=== PATIENT | female | born 1975 | race Two or more races ===

== ENCOUNTER 2024-03-29 16:17 | Inpatient (IN) | payer MEDICAID, OTHER ==
[~2024-03-29] VITALS: Ht 154.9 cm; Wt 83.6 kg
[2024-03-29 17:13] LABS: Urine Bacteria None Seen /hpf (None Seen)
[2024-03-29 17:26] LABS: Urine Blood 3+ /uL (Negative); Urine Clarity Clear (Clear); Urine Color Colorless (Yellow); Urine Protein, UAD Negative (Negative); Urine Specific Gravity 1.007 (1.001-1.035); Urine Urobilinogen Normal (Negative); Urine WBC 1 /hpf (0 - 5)
[2024-03-29 17:51] LABS: Basophils # (auto) 0 10 ^3/uL (0-0.2); Basophils % (auto) 0.3 % (0.0-2.0); Eosinophils # (auto) 0 10 ^3/uL (0-0.8); Monocytes # (auto) 0.8 10 ^3/uL (0-1.3); White Blood Cell 12.5 10^3/uL (4.4-10.8)
[2024-03-29 17:54] LABS: Eosinophils % (auto) 0.3 % (0.0-7.0); Hematocrit 31.9 % (36.0-46.0); Hemoglobin 9.9 g/dL (12.2-16.2); Lymphocytes % (auto) 16.3 % (10.0-50.0); Mean Corpuscular Hemoglobin 19.8 pg (28.0-32.0); Mean Corpuscular Hgb Conc. 30.9 g/dL (32.0-36.0); Mean Corpuscular Volume 64.2 fL (80.0-100.0); Monocytes % (auto) 6.1 % (0.0-12.0); Neutrophils # (auto) 9.6 10 ^3/uL (1.6-8.6); Platelet Count (auto) 194 10^3/uL (140-450); Red Blood Cells 4.97 10^6/uL (4.0-5.20); Red Cell Distribution Width 19.9 % (11.8-14.3)
[2024-03-29 18:11] LABS: Alanine Aminotransferase 18 U/L (7-40); Albumin 4.4 g/dL (3.2-4.8); Alkaline Phosphatase 94 U/L (46-116); Anion Gap 8 (5-15); Aspartate Aminotransferase 22 U/L (13-40); BUN/Creatinine Ratio 14.9 (10.0-20.0); Blood Urea Nitrogen 10 mg/dL (9-23); Calcium 9.3 mg/dL (8.7-10.4); Carbon Dioxide 24 mmol/L (20-31); Chloride 107 mmol/L (98-107); Glucose 88 mg/dL (74-106); Sodium 139 mmol/L (136-145)
[2024-03-29 18:12] LABS: Bilirubin, Total 0.4 mg/dL (0.2-1.0); Total Protein 7.7 g/dL (5.7-8.2)
[2024-03-29] MEDS: ACETAMINOPHEN 325 MG TAB PO ONE (19:57)
[2024-03-29] MEDS: SODIUM CHLORIDE 0.9% 1,000 ML IV ONE (20:05)
[2024-03-29] MEDS: cefTRIAXone 1GM/50ML D5W 50 ML IV ONE (20:06)
[2024-03-29] MEDS: fentaNYL CITRATE 100 MCG/2 ML VL IV ONE (20:53)
[2024-03-29] MEDS ORDERED: MORPHINE SULFATE INJ 2 MG/ml SYRG IV PRN (23:45)
[2024-03-29] MEDS: SODIUM CHLORIDE 0.9% 1,000 ML IV SCH (23:45)
[2024-03-29] MEDS ORDERED: NITROGLYCERIN 0.4 MG SL TAB SL PRN (23:45)
[2024-03-29] MEDS ORDERED: ACETAMINOPHEN 325 MG TAB PO PRN (23:45)
[2024-03-29] MEDS ORDERED: ONDANSETRON HCL 4 MG/2 ML VIAL IV PRN (23:45)
[2024-03-30] VITALS (8 sets, daily range): BP systolic 125–148; BP diastolic 64–76; PULSE 66–82; RESP 16–20; TEMP 97.8–98.2; O2SAT 96–100
[2024-03-30] MEDS: DOXYCYCLINE 100MG/250ML 250 ML IV SCH (00:31)
[2024-03-30 00:32] LABS: Erythrocyte Sedimentation Rate 34 mm/hr (0-20)
[2024-03-30] MEDS: HYDROcodone-ACET 5/325MG TAB PO PRN (01:44)
[2024-03-30 03:05] LABS: Basophils # (auto) 0 10 ^3/uL (0-0.2); Hemoglobin 9.1 g/dL (12.2-16.2); Lymphocytes # (auto) 2.1 10 ^3/uL (0.4-5.4); Mean Corpuscular Hemoglobin 19.7 pg (28.0-32.0); Neutrophils # (auto) 8.4 10 ^3/uL (1.6-8.6)
[2024-03-30 03:07] LABS: Basophils % (auto) 0.3 % (0.0-2.0); Eosinophils # (auto) 0.1 10 ^3/uL (0-0.8); Eosinophils % (auto) 0.5 % (0.0-7.0); Hematocrit 29.4 % (36.0-46.0); Lymphocytes % (auto) 18.4 % (10.0-50.0); Mean Corpuscular Volume 63.8 fL (80.0-100.0); Monocytes % (auto) 8.6 % (0.0-12.0); Neutrophils % (auto) 72.2 % (37.0-80.0); Platelet Count (auto) 174 10^3/uL (140-450); Red Blood Cells 4.61 10^6/uL (4.0-5.20); White Blood Cell 11.6 10^3/uL (4.4-10.8)
[2024-03-30 03:19] LABS: % Iron Saturation 3.6 % (15-50); Alanine Aminotransferase 13 U/L (7-40); Albumin 4.2 g/dL (3.2-4.8); Alkaline Phosphatase 80 U/L (46-116); Anion Gap 7 (5-15); Aspartate Aminotransferase 15 U/L (13-40); Blood Urea Nitrogen 7 mg/dL (9-23); Calcium 8.9 mg/dL (8.7-10.4); Carbon Dioxide 24 mmol/L (20-31); Chloride 108 mmol/L (98-107); Glucose 103 mg/dL (74-106); Potassium 3.6 mmol/L (3.5-5.1); Sodium 139 mmol/L (136-145)
[2024-03-30 03:20] LABS: Bilirubin, Total 0.5 mg/dL (0.2-1.0); Total Protein 7.2 g/dL (5.7-8.2)
[2024-03-30 03:21] LABS: INR 1.08 (0.9-1.15); Prothrombin Time 11.4 sec (9.3-11.8)
[2024-03-30 04:02] LABS: Hypochromia Marked; Platelet Estimate Adequate
[2024-03-30 04:03] LABS: Anisocytosis Slight
[2024-03-30] MEDS: PANTOPRAZOLE 40 MG TAB PO SCH (09:43)
[2024-03-30] MEDS: ENOXAPARIN SOD 40 MG/0.4 ML SYRINGE SC SCH (09:48)
[2024-03-30] MEDS ORDERED: ATEN25TA PO (10:28)
[2024-03-30] MEDS ORDERED: ROSU5TAB24 PO (10:28)
[2024-03-30] MEDS ORDERED: AMLO1TAB21 PO (10:28)
[2024-03-30] MEDS ORDERED: CHOL1TAB30 PO (10:28)
[2024-03-30] MEDS ORDERED: IBUP1TAB5 PO (10:28)
[2024-03-30] MEDS ORDERED: TRAZ-228 PO (10:28)
[2024-03-30] MEDS ORDERED: [UNRECOGNIZED DRUG - CODE] PO (10:28)
[2024-03-30] MEDS: amLODIPine BESYLATE 5 MG TAB PO ONE (10:50)
[2024-03-30 12:12] LABS: COVID19 ANTIGEN SOFIA FIA NEGATIVE (NEGATIVE); Rapid Influenza A Negative (Negative); Rapid Influenza B Negative (Negative)
[2024-03-30] MEDS: ERGOCALCIFEROL 50,000 UNIT(1.25MG) CAP PO SCH (15:46)
[2024-03-30] MEDS: CYANOCOBALAMIN (B-12) 1000 MCG/1 ML VIAL IM ONE (15:47)
[2024-03-30] MEDS: cefTRIAXone 1GM/50ML D5W 50 ML IV SCH (23:56)
[2024-03-31 01:00] VITALS: BP 124/74; PULSE 74; RESP 19; TEMP 97.9; O2SAT 97
[2024-03-31 05:00] VITALS: BP 125/68; PULSE 62; RESP 18; TEMP 97.4; O2SAT 99
[2024-03-31 06:57] LABS: Basophils # (auto) 0 10 ^3/uL (0-0.2); Basophils % (auto) 0.4 % (0.0-2.0); Eosinophils # (auto) 0.1 10 ^3/uL (0-0.8); Eosinophils % (auto) 1.1 % (0.0-7.0); Hematocrit 31.5 % (36.0-46.0); Hemoglobin 9.6 g/dL (12.2-16.2); Lymphocytes # (auto) 2.3 10 ^3/uL (0.4-5.4); Lymphocytes % (auto) 29.9 % (10.0-50.0); Mean Corpuscular Hemoglobin 19.5 pg (28.0-32.0); Mean Corpuscular Hgb Conc. 30.4 g/dL (32.0-36.0); Mean Corpuscular Volume 64.3 fL (80.0-100.0); Monocytes # (auto) 0.6 10 ^3/uL (0-1.3); Monocytes % (auto) 7.8 % (0.0-12.0); Neutrophils # (auto) 4.7 10 ^3/uL (1.6-8.6); Neutrophils % (auto) 60.8 % (37.0-80.0); Nucleated Red Blood Cells % 0.1 %; Platelet Count (auto) 214 10^3/uL (140-450); Red Cell Distribution Width 19.8 % (11.8-14.3); White Blood Cell 7.7 10^3/uL (4.4-10.8)
[2024-03-31 07:06] LABS: RPR Non Reactive (Non Reactive)
[2024-03-31 07:15] LABS: Alanine Aminotransferase 12 U/L (7-40); Albumin 4.2 g/dL (3.2-4.8); Alkaline Phosphatase 86 U/L (46-116); Anion Gap 9 (5-15); Aspartate Aminotransferase 15 U/L (13-40); BUN/Creatinine Ratio 9.5 (10.0-20.0); Blood Urea Nitrogen 6 mg/dL (9-23); Calcium 9.3 mg/dL (8.7-10.4); Carbon Dioxide 25 mmol/L (20-31); Chloride 104 mmol/L (98-107); Glucose 81 mg/dL (74-106); Potassium 3.8 mmol/L (3.5-5.1); Sodium 138 mmol/L (136-145)
[2024-03-31 07:16] LABS: Bilirubin, Total 0.4 mg/dL (0.2-1.0); Total Protein 7.3 g/dL (5.7-8.2)
[2024-03-31 09:00] VITALS: BP 126/70; PULSE 76; RESP 17; TEMP 97.8; O2SAT 100
[2024-03-31] MEDS: amLODIPine BESYLATE 5 MG TAB PO SCH (09:20)
[2024-03-31 09:39] LABS: Hypochromia Marked; Platelet Estimate Adequate
[2024-03-31] MEDS ORDERED: MET500T PO (11:19)
[2024-03-31] MEDS ORDERED: DOXY-346 PO (11:19)
[2024-03-31 12:52] VITALS: BP 123/73; PULSE 70; RESP 15; TEMP 97.8; O2SAT 100
[2024-03-31] MEDS ORDERED: TRAN650T5 OR (13:24)
== END 2024-03-31 16:55 | disposition home or self-care (01) | DRG 720 ==
LOC: ER 16:17 → OVERFLOW 23:44 → WEST WING 03-30 12:30
PROVIDERS: ADMIT Internal Medicine; ATTEND Emergency Medicine
DX: A41.9 Sepsis, unspecified organism (principal); J15.69 Pneumonia due to other Gram-negative bacteria; D25.9 Leiomyoma of uterus, unspecified; E55.9 Vitamin D deficiency, unspecified; E53.8 Deficiency of other specified B group vitamins; Z20.822 Contact with and (suspected) exposure to COVID-19; D50.0 Iron deficiency anemia secondary to blood loss (chronic); Z82.49 Family history of ischemic heart disease and other diseases of the circulatory system; Z98.891 History of uterine scar from previous surgery; Z90.710 Acquired absence of both cervix and uterus; Z79.899 Other long term (current) drug therapy; Z83.3 Family history of diabetes mellitus; N73.9 Female pelvic inflammatory disease, unspecified; J15.9 Unspecified bacterial pneumonia
CPT/HCPCS: 36415; 71045; 74176; 76856; 80053; 81001; 82306; 82607; 83036; 83540; 83550; 83605; 83880; 84443; 84484; 84702; 85025; 85610; 85652; 85730; 86141; 86592; 86703; 87040; 87426; 87804; G0378; J3490

== ENCOUNTER 2024-09-06 00:39 | Emergency (ER) | payer MEDICAID ==
[~2024-09-06] VITALS: Ht 154.9 cm; Wt 79.2 kg
[~2024-09-06 00:39] MED LIST: AMLO1TAB21 PO; ATEN25TA PO; CHOL1TAB30 PO; DOXY-346 PO; IBUP1TAB5 PO; MET500T PO; ROSU5TAB24 PO; TRAN650T5 OR; TRAZ-228 PO
[2024-09-06] MEDS: cloNIDine HCL 0.1 MG TAB PO ONE (01:15)
[2024-09-06 01:43] VITALS: BP 137/66; PULSE 75; TEMP 98
[2024-09-06] MEDS: KETOROLAC TROMETH 30 MG/ML 1ML VIAL IM ONE (01:46)
[2024-09-06] MEDS: methylPREDNISolone SOD SUCC 125 MG/2 ML VL IM ONE (01:46)
[2024-09-06] MEDS ORDERED: CYCL-837 PO (01:47)
--- NOTE | 2024-09-06 01:48 | ED.PDOC ---
Back pain HPI HPI Comments 49-year-old female complaining of neck pain and right shoulder pain. States she has been dealing with this for the last two years after having heavy boxes fallen in her while she was at work. States she has been seen by her primary care doctor, last visit was on . States her blood pressure was high, no medications were given for her neck pain, she was only started with physical therapy. Patient states he has been doing physical therapy intermittent landing for the last year with no significant improvement. She was says she has a hard time sleeping due to the pain which makes it blood pressure worse. No chest pain. Has been some mild shortness of breath. Chief Complaint: Upper Extremity Time Seen by MD: 00:47 Primary Care Provider: KATIE Reviewed Notes: Nurses Notes Allergies: Coded Allergies: NO KNOWN ALLERGIES (Unverified , 03/29/24) Home Meds Active Scripts Tranexamic Acid (TRANEXAMIC ACID) 650 Mg Tab, 650 MG OR TID for 5 Days, #15 TAB Prov:CHOLO MULLEN RESIDENT 03/31/24 Metronidazole (Metronidazole) 500 Mg Tab, 500 MG PO BID for 14 Days, #28 TAB Prov:CHOLO MULLEN RESIDENT 03/31/24 Doxycycline (Monohydrate) (Doxycycline) 100 Mg Tab, 100 MG PO BID for 14 Days, #28 TAB Prov:CHOLO MULLEN RESIDENT 03/31/24 Reported Medications Rosuvastatin Calcium (Rosuvastatin Calcium) 5 Mg Tab, 1 TAB PO 03/30/24 Cholecalciferol (Gnp Vitamin D) 1,000 Unit Tab, 1 TAB PO DAILY 03/30/24 Trazodone Hcl (Trazodone Hcl) 100 Mg Tab, 1 TAB PO 03/30/24 Ibuprofen Micronized (Ibuprofen) 600 Mg Tab, 1 TAB PO Q6HPRN PRN for PAIN SCALE 1 THRU 6 03/30/24 Amlodipine Besylate (Amlodipine Besylate) 2.5 Mg Tab, 1 TAB PO DAILY 03/30/24 Atenolol (Atenolol) 25 Mg Tab, 1 TAB PO DAILY 03/30/24 Information Source: Patient Mode of Arrival: Ambulatory Past Medical History PAST MEDICAL HISTORY: HTN Surgical History: Denies all surgeries SURFACE WATER TECHNICIAN History: No Pertinent SURFACE WATER TECHNICIAN History Constitutional: denies: chills, diaphoresis, fatigue, fever, malaise, sweats, weakness, others EENTM: denies: blurred vision, double vision, ear bleeding, ear discharge, ear drainage, ear pain, ear ringing, eye pain, eye redness, hearing loss, mouth pain, mouth swelling, nasal discharge, nose bleeding, nose congestion, nose pain, photophobia, tearing, throat pain, throat swelling, voice changes, others Respiratory: denies: cough, hemoptysis, orthopnea, SOB at rest, shortness of breath, SOB with excertion, stridor, wheezing, others Cardiovascular: denies: chest pain, dizzy spells, diaphoresis, Dyspnea on exer tion, edema, irregular heart beat, left arm pain, lightheadedness, palpitations, PND, syncope, others Gastrointestinal: denies: abdomen distended, abdominal pain, blood streaked bowels, constipated, diarrhea, dysphagia, difficulty swallowing, hematemesis, melena, nausea, poor appetite, poor fluid intake, rectal bleeding, rectal pain, vomiting, others Genitourinary: denies: abnormal vagina bleeding, burning, dyspareunia, dysuria, flank pain, frequency, hematuria, incontinence, pain, , vagina discharge, urgency, others Neurological: denies: dizziness, fainting, headache, left sided numbness, left sided weakness, numbness, paresthesia, pre-existing deficit, right sided numbness, right sided weakness, seizure, speech problems, tingling, tremors, weakness, others Musculoskeletal: reports: muscle pain, muscle stiffness; denies: back pain, gout, joint pain, joint swelling, neck pain, others Integumetry: denies: bruises, change in color, change in hair/nails, dryness, laceration, lesions, lumps, rash, wounds, others Physical Exam General Appearance: No Apparent Distress, Normal HEENT: Normal ENT Inspection, Pharynx Normal, TMs Normal Neck: Full Range of Motion, Non-Tender, Normal, Normal Inspection Respiratory: Chest Non-Tender, Lungs Clear, No Accessory Muscle Use, No Respiratory Distress, Normal Breath Sounds Cardiovascular: No Edema, No JVD, No Murmur, No Gallop, Normal Peripheral Pulses, Regular Rate/Rhythm Breast Exam: Deferred Gastrointestinal: No Organomegaly, Non Tender, No Pulsatile Mass, Normal Bowel Sounds, Soft Genitalia: Deferred Pelvic: Deferred Rectal: Deferred Extremities: No calf tenderness, Normal capillary refill, Normal inspection, Normal range of motion, Non-tender, No pedal edema Musculoskeletal : Apperance: Normal Neurologic: Alert, steel burner II-XII nml as Tested, No Motor Deficits, Normal Affect, Normal Mood, No Sensory Deficits Cerebellar Function: Normal Reflexes: Normal Skin: Dry, Normal Color, Warm Lymphatic: No Adenopathy Was a procedure done? Was a procedure done?: No Back Pain Differential Dx Differential Diagnosis: Fracture, Musculoskeletal Pain X-Ray, Labs, Meds, VS Vital Signs Date Time Temp Pulse Resp B/P (MAP) Pulse Ox O2 Delivery O2 Flow Rate FiO2 09/06/24 00:50 97.9 81 18 182/114 (136) 96 97.9 X-Ray, Labs, Meds, VS Comment Imaging: X-rays and CT scans were reviewed and interpreted by this provider, little ging shows no fractures and no pathological disease. Pending radiology review. Laboratory: Labs reviewed and interpreted by this provider. No significant abnormalities noted. Patient has prior medical visits reviewed. Med reconciliation performed Vital signs reviewed Time of 1ST Reevaluation: 01:47 Reevaluation 1ST: Improved Patient Education/Counseling: Diagnosis, Treatment, Need For Follow Up (Follow up in the emergency department in the next 24 hours if symptoms worsen. Follow up with PCP next available appointment) Family Education/Counseling: Diagnosis Departure 1 Departure Time of Disposition: 01:46 Impression: Primary Impression: Tension headache Additional Impressions: Trapezius muscle strain Qualified Codes: S46.811A - Strain of other muscles, fascia and tendons at shoulder and upper arm level, right arm, initial encounter Hypertension Qualified Codes: I10 - Essential (primary) hypertension Disposition: 01 HOME / SELF CARE / HOMELESS Condition: Fair e-Prescriptions Cyclobenzaprine Hcl (Cyclobenzaprine Hcl) 5 Mg Tab 1 TAB PO TID PRN, #30 TAB Prov: JOSIAH RODRIGUEZ 09/06/24 Discharged With: Self Critical Care Note Critical Care Time?: No Stability Stability form required: No Heart Score Heart Score: Heart Score Response (Comments) Value History N/A 0 EKG N/A 0 Age N/A 0 Risk Factors N/A 0 Troponin N/A 0 Total 0 JOSIAH RODRIGUEZ Sep 06, 2024 01:48
[2024-09-06 02:25] VITALS: RESP 20; O2SAT 98
== END 2024-09-06 02:34 | disposition home or self-care (01) ==
LOC: ER 00:39
DX: S46.911A Strain of unspecified muscle, fascia and tendon at shoulder and upper arm level, right arm, initial encounter (principal); G44.209 Tension-type headache, unspecified, not intractable; I10 Essential (primary) hypertension; Z79.899 Other long term (current) drug therapy; W19.XXXA Unspecified fall, initial encounter; Y93.89 Activity, other specified; Y92.89 Other specified places as the place of occurrence of the external cause; Y99.8 Other external cause status
CPT/HCPCS: 96372; 99284; J1885; J2919